=== PATIENT | male | born 1945 | race Caucasian/White ===

== ENCOUNTER 2018-07-18 17:42 | Emergency (ER) | payer BC, OTHER ==
[2018-07-18] MEDS ORDERED: VANCOMYCIN 1 GM (PMX) 250 ML IVPB (23:00)
[2018-07-18] MEDS ORDERED: CEFTRIAXONE 2 GM/50 ML (PMX) 50 ML IVPB (23:00)
[2018-07-18] MEDS ORDERED: ACYCLOVIR 500 MG in DEXTROSE 5% 100 ML IVPB (23:00)
== END 2018-07-18 23:15 | disposition left against medical advice (07) ==
LOC: E/R 23:15
DX: L03.211 Cellulitis of face (principal); B02.9 Zoster without complications
CPT/HCPCS: 99282

== ENCOUNTER 2018-07-21 14:50 | Inpatient (IN) | payer BC ==
[2018-07-21 16:52] LABS: ADD MAN DIFF? NO
[2018-07-21] MEDS: SOD CHLORIDE 0.9% 1,000 ML IV (16:54)
[2018-07-21 16:58] LABS: BASOPHILS % 0.4 % (0.0-2.0); HEMATOCRIT 40.4 % (42.0-52.0); HEMOGLOBIN 13.7 g/dl (14.0-18.0); LYMPHOCYTES # 0.8 10^3/ul (0.8-2.9); MEAN CORPUSCULAR HEMOGLOBIN 30.5 pg (29.0-33.0); MEAN CORPUSCULAR HGB CONC 33.9 g/dl (32.0-37.0); MEAN PLATELET VOLUME 10.5 fl (7.4-10.4); MONOCYTE # 0.5 10^3/ul (0.3-0.9); MONOCYTES % 7.4 % (0.0-11.0); NEUTROPHIL # 5.6 10^3/ul (1.6-7.5); NEUTROPHILS % 79.9 % (39.0-77.0); PLATELET COUNT 246 10^3/UL (140-415); RED BLOOD COUNT 4.49 10^6/ul (4.70-6.10); RED CELL DISTRIBUTION WIDTH 12.9 % (11.5-14.5)
[2018-07-21 17:18] LABS: ANION GAP 12 (5-13); BLOOD UREA NITROGEN 23 mg/dl (7-20); CALCIUM 9.8 mg/dl (8.4-10.2); CARBON DIOXIDE 28 mmol/L (21-31); CHLORIDE 100 mmol/L (97-110); CREATININE 1.41 mg/dl (0.61-1.24); Estimated GFR 50 mL/min (>60); GLUCOSE 106 mg/dl (70-220); POTASSIUM 4.6 mmol/L (3.5-5.1); SODIUM 140 mmol/L (135-144)
[2018-07-21 17:28] LABS: INR 1.04; PROTIME 13.7 Sec (11.9-14.9); PT RATIO 1.1
[2018-07-21 17:29] LABS: PARTIAL THROMBOPLASTIN TIME 27.9 Sec (23.0-35.0)
[2018-07-21] MEDS: ACYCLOVIR 500 MG in DEXTROSE 5% 100 ML IVPB (19:21)
[2018-07-21] MEDS: LIDOCAINE 1% (MDV) 20 ML INJ SC (19:27)
[2018-07-21] MEDS ORDERED: ONDANSETRON 4 MG INJ IV (20:00)
[2018-07-21] MEDS ORDERED: ACETAMINOPHEN 325 MG TAB PO (20:00)
[2018-07-21 20:24] LABS: CSF RBC 0 /uL (0-0)
[2018-07-21 20:26] LABS: CSF RBC 0 /uL (0-0)
[2018-07-21 20:41] LABS: GLUCOSE,CSF 68 mg/dl (50-80)
[2018-07-21 21:23] LABS: CSF COLOR COLORLESS; CSF WBC 17 /cmm (0-10)
[2018-07-21 21:24] LABS: CSF CLARITY CLEAR; CSF VOLUME 5.5 ml; CSF WBC 30 /cmm (0-10); CSF#TUBE COUNT TUBE#1; CSF#TUBES REC'D 4
[2018-07-21 21:24] LABS: CSF COLOR COLORLESS
[2018-07-21 21:25] LABS: CSF VOLUME 5.5 ml; CSF#TUBE COUNT TUBE#4; CSF#TUBES REC'D 4; TOTAL PROTEIN,CSF 53 mg/dl (12-60)
[2018-07-21] MEDS: DEXAMETHASONE 10 MG/ML 1 ML INJ IV (22:42)
[2018-07-21] MEDS: CEFTRIAXONE 2 GM/50 ML (PMX) 50 ML IVPB (22:44)
[2018-07-21] MEDS: VANCOMYCIN 1 GM (PMX) 250 ML IVPB (23:20)
[2018-07-22] MEDS ORDERED: ZOLPIDEM 5 MG TAB PO (02:30)
[2018-07-22] MEDS ORDERED: ACETAMINOPHEN 500 MG TAB PO (02:30)
[2018-07-22] MEDS: ACYCLOVIR 500 MG in SOD CHLORIDE 0.9% 100 ML IVPB ×3 (06:53→21:34)
[2018-07-22] MEDS: DEXTROSE 5%-0.45% NACL 500 ML IV (14:04)
[2018-07-22] MEDS: DEXTROSE 5%-0.45% NACL 1,000 ML IV ×2 (14:23→21:36)
[2018-07-22] MEDS: DEXAMETHASONE 0.1% 5 ML OPH LEFT EYE (21:33)
[2018-07-23] MEDS: DEXTROSE 5%-0.45% NACL 1,000 ML IV ×3 (01:47→16:11)
[2018-07-23] MEDS: ACYCLOVIR 500 MG in SOD CHLORIDE 0.9% 100 ML IVPB ×2 (06:18→21:19)
[2018-07-23 06:40] LABS: ADD MAN DIFF? NO
[2018-07-23 06:47] LABS: BASOPHILS % 0.1 % (0.0-2.0); EOSINOPHILS % 0.2 % (0.0-7.0); HEMATOCRIT 40.5 % (42.0-52.0); HEMOGLOBIN 13.3 g/dl (14.0-18.0); LYMPHOCYTES # 0.9 10^3/ul (0.8-2.9); LYMPHOCYTES % 5.1 % (15.0-51.0); MEAN CORPUSCULAR HEMOGLOBIN 30.1 pg (29.0-33.0); MEAN CORPUSCULAR HGB CONC 32.8 g/dl (32.0-37.0); MEAN CORPUSCULAR VOLUME 91.6 fl (82.0-101.0); MEAN PLATELET VOLUME 10.8 fl (7.4-10.4); MONOCYTE # 1.1 10^3/ul (0.3-0.9); NEUTROPHILS % 88.1 % (39.0-77.0); PLATELET COUNT 242 10^3/UL (140-415); RED BLOOD COUNT 4.42 10^6/ul (4.70-6.10); RED CELL DISTRIBUTION WIDTH 12.5 % (11.5-14.5)
[2018-07-23 06:47] LABS: WHITE BLOOD COUNT 18.2 10^3/ul (4.8-10.8)
[2018-07-23 07:23] LABS: ANION GAP 9 (5-13); BLOOD UREA NITROGEN 25 mg/dl (7-20); CALCIUM 8.7 mg/dl (8.4-10.2); CARBON DIOXIDE 26 mmol/L (21-31); CHLORIDE 97 mmol/L (97-110); CREATININE 1.01 mg/dl (0.61-1.24); Estimated GFR > 60 mL/min (>60); GLUCOSE 113 mg/dl (70-220); POTASSIUM 3.9 mmol/L (3.5-5.1); SODIUM 132 mmol/L (135-144)
[2018-07-23 07:40] LABS: T4 (THYROXINE) 7.4 ug/dl (5.5-11.0)
[2018-07-23] MEDS: DEXAMETHASONE 0.1% 5 ML OPH LEFT EYE ×3 (08:23→21:26)
[2018-07-23 13:59] LABS: ADD UMIC NO; UR ASCORBIC ACID NEGATIVE (NEGATIVE); UR BILIRUBIN (Dip) NEGATIVE (NEGATIVE); UR BLOOD (Dip) NEGATIVE (NEGATIVE); UR CLARITY CLEAR (CLEAR); UR COLOR STRAW (YELLOW); UR GLUCOSE (Dip) NEGATIVE (NEGATIVE); UR KETONES (Dip) NEGATIVE (NEGATIVE); UR LEUKOCYTE ESTERASE (Dip) NEGATIVE Leu/ul (NEGATIVE); UR NITRITE (Dip) NEGATIVE (NEGATIVE); UR SPECIFIC GRAVITY (Dip) 1.009 (1.003-1.030); UR TOTAL PROTEIN (Dip) NEGATIVE (NEGATIVE); UR UROBILINOGEN (Dip) NEGATIVE (NEGATIVE)
[2018-07-24] MEDS: DEXTROSE 5%-0.45% NACL 1,000 ML IV ×3 (04:00→13:09)
[2018-07-24] MEDS: DEXAMETHASONE 0.1% 5 ML OPH LEFT EYE ×3 (05:43→22:12)
[2018-07-24 06:57] LABS: ADD MAN DIFF? NO
[2018-07-24 07:07] LABS: BASOPHILS % 0.3 % (0.0-2.0); EOSINOPHILS # 0.1 10^3/ul (0.0-0.5); EOSINOPHILS % 1.1 % (0.0-7.0); HEMATOCRIT 34.1 % (42.0-52.0); HEMOGLOBIN 11.3 g/dl (14.0-18.0); LYMPHOCYTES % 14.1 % (15.0-51.0); MEAN CORPUSCULAR HEMOGLOBIN 30.3 pg (29.0-33.0); MEAN CORPUSCULAR HGB CONC 33.1 g/dl (32.0-37.0); MEAN CORPUSCULAR VOLUME 91.4 fl (82.0-101.0); MEAN PLATELET VOLUME 10.5 fl (7.4-10.4); MONOCYTE # 0.6 10^3/ul (0.3-0.9); MONOCYTES % 8.8 % (0.0-11.0); NEUTROPHIL # 5.3 10^3/ul (1.6-7.5); NEUTROPHILS % 75.4 % (39.0-77.0); PLATELET COUNT 191 10^3/UL (140-415); RED BLOOD COUNT 3.73 10^6/ul (4.70-6.10); RED CELL DISTRIBUTION WIDTH 12.4 % (11.5-14.5)
[2018-07-24 07:34] LABS: ALANINE AMINOTRANSFERASE 33 IU/L (13-69); ALBUMIN 2.9 g/dl (3.3-4.9); ALKALINE PHOSPHATASE 48 IU/L (42-121); ANION GAP 8 (5-13); ASPARTATE AMINO TRANSFERASE 29 IU/L (15-46); BILIRUBIN,INDIRECT 0.5 mg/dl (0-1.1); BILIRUBIN,TOTAL 0.5 mg/dl (0.2-1.3); BLOOD UREA NITROGEN 16 mg/dl (7-20); CALCIUM 8.2 mg/dl (8.4-10.2); CARBON DIOXIDE 28 mmol/L (21-31); CHLORIDE 100 mmol/L (97-110); CREATININE 0.83 mg/dl (0.61-1.24); Estimated GFR > 60 mL/min (>60); GLUCOSE 121 mg/dl (70-220); POTASSIUM 3.5 mmol/L (3.5-5.1); SODIUM 136 mmol/L (135-144); TOTAL PROTEIN 5.3 g/dl (6.1-8.1)
[2018-07-24 08:17] LABS: HIV 1&2 ANTIBODY NEGATIVE (NEGATIVE)
[2018-07-24] MEDS: VALACYCLOVIR 500 MG TAB PO ×3 (10:07→20:35)
[2018-07-24] MEDS: DEXTROSE IV (15:33)
[2018-07-24] MEDS: NACL IV (15:33)
[2018-07-24] MEDS: POTASSIUM CHLORIDE IV (15:33)
[2018-07-24] MEDS: VANCOMYCIN HCL 250 MG/5ML POSYG PO (17:13)
[2018-07-24 21:32] LABS: HERPES SIMPLEX 1 DNA NOT DETECTED; HERPES SIMPLEX 2 DNA NOT DETECTED; HERPES SIMPLEX PCR SOURCE CEREBROSPINAL FLUID
[2018-07-25] MEDS: VANCOMYCIN HCL 250 MG/5ML POSYG PO ×5 (00:07→23:51)
[2018-07-25] MEDS: ONDANSETRON 4 MG INJ IV (00:07)
[2018-07-25] MEDS: DEXTROSE IV ×2 (05:38→17:40)
[2018-07-25] MEDS: POTASSIUM CHLORIDE IV ×2 (05:38→17:40)
[2018-07-25] MEDS: NACL IV ×2 (05:38→17:40)
[2018-07-25] MEDS: DEXAMETHASONE 0.1% 5 ML OPH LEFT EYE ×3 (06:44→21:07)
[2018-07-25] MEDS: VALACYCLOVIR 500 MG TAB PO ×3 (08:34→21:07)
[2018-07-25 08:56] LABS: ADD MAN DIFF? NO
[2018-07-25 08:59] LABS: WHITE BLOOD COUNT 23.2 10^3/ul (4.8-10.8)
[2018-07-25 08:59] LABS: ABNORMAL IP MESSAGE 1; BASOPHILS % 0.2 % (0.0-2.0); EOSINOPHILS # 0.1 10^3/ul (0.0-0.5); EOSINOPHILS % 0.3 % (0.0-7.0); HEMOGLOBIN 12.2 g/dl (14.0-18.0); LYMPHOCYTES % 4.2 % (15.0-51.0); MEAN CORPUSCULAR HEMOGLOBIN 30.4 pg (29.0-33.0); MEAN CORPUSCULAR HGB CONC 33.9 g/dl (32.0-37.0); MEAN CORPUSCULAR VOLUME 89.8 fl (82.0-101.0); MEAN PLATELET VOLUME 10.5 fl (7.4-10.4); MONOCYTE # 1.5 10^3/ul (0.3-0.9); MONOCYTES % 6.3 % (0.0-11.0); NEUTROPHIL # 20.5 10^3/ul (1.6-7.5); PLATELET COUNT 229 10^3/UL (140-415); POSITIVE DIFF @See below; RED BLOOD COUNT 4.01 10^6/ul (4.70-6.10); RED CELL DISTRIBUTION WIDTH 12.4 % (11.5-14.5)
[2018-07-25 09:27] LABS: ANION GAP 8 (5-13); BLOOD UREA NITROGEN 11 mg/dl (7-20); CALCIUM 8.7 mg/dl (8.4-10.2); CARBON DIOXIDE 27 mmol/L (21-31); CHLORIDE 100 mmol/L (97-110); CREATININE 0.79 mg/dl (0.61-1.24); Estimated GFR > 60 mL/min (>60); GLUCOSE 119 mg/dl (70-220); POTASSIUM 3.7 mmol/L (3.5-5.1); SODIUM 135 mmol/L (135-144)
[2018-07-26] MEDS: VANCOMYCIN HCL 250 MG/5ML POSYG PO ×2 (05:53→13:13)
[2018-07-26] MEDS: DEXAMETHASONE 0.1% 5 ML OPH LEFT EYE ×2 (05:54→14:07)
[2018-07-26] MEDS: POTASSIUM CHLORIDE IV (06:31)
[2018-07-26] MEDS: DEXTROSE IV (06:31)
[2018-07-26] MEDS: NACL IV (06:31)
[2018-07-26 06:54] LABS: ADD MAN DIFF? NO
[2018-07-26 07:05] LABS: WHITE BLOOD COUNT 11.1 10^3/ul (4.8-10.8)
[2018-07-26 07:05] LABS: BASOPHILS % 0.3 % (0.0-2.0); EOSINOPHILS # 0.1 10^3/ul (0.0-0.5); EOSINOPHILS % 0.9 % (0.0-7.0); HEMATOCRIT 37.4 % (42.0-52.0); HEMOGLOBIN 12.4 g/dl (14.0-18.0); LYMPHOCYTES # 0.8 10^3/ul (0.8-2.9); LYMPHOCYTES % 7.5 % (15.0-51.0); MEAN CORPUSCULAR HGB CONC 33.2 g/dl (32.0-37.0); MEAN CORPUSCULAR VOLUME 90.6 fl (82.0-101.0); MEAN PLATELET VOLUME 10.3 fl (7.4-10.4); MONOCYTE # 0.7 10^3/ul (0.3-0.9); MONOCYTES % 6.2 % (0.0-11.0); NEUTROPHIL # 9.4 10^3/ul (1.6-7.5); NEUTROPHILS % 84.5 % (39.0-77.0); PLATELET COUNT 272 10^3/UL (140-415); RED BLOOD COUNT 4.13 10^6/ul (4.70-6.10); RED CELL DISTRIBUTION WIDTH 12.6 % (11.5-14.5)
[2018-07-26 08:06] LABS: ANION GAP 10 (5-13); BLOOD UREA NITROGEN 13 mg/dl (7-20); CALCIUM 8.9 mg/dl (8.4-10.2); CARBON DIOXIDE 27 mmol/L (21-31); CHLORIDE 99 mmol/L (97-110); CREATININE 0.77 mg/dl (0.61-1.24); Estimated GFR > 60 mL/min (>60); GLUCOSE 124 mg/dl (70-220); SODIUM 136 mmol/L (135-144)
[2018-07-26 08:13] LABS: IMMUNOGLOBULIN G 948 mg/dl (700-1600)
[2018-07-26] MEDS: VALACYCLOVIR 500 MG TAB PO ×2 (08:39→13:13)
== END 2018-07-26 16:10 | disposition home or self-care (01) | DRG 74 ==
LOC: 5EC 07-22 02:45 → E/R 14:50 → 5EC 19:48
PROC: 009U3ZX Drainage of Spinal Canal, Percutaneous Approach, Diagnostic (ICD-10-PCS; principal; 2018-07-21)
DX: B02.0 Zoster encephalitis (principal); N17.9 Acute kidney failure, unspecified; A04.72 Enterocolitis due to Clostridium difficile, not specified as recurrent; L03.211 Cellulitis of face; R44.1 Visual hallucinations; E86.0 Dehydration; H10.9 Unspecified conjunctivitis; H10.32 Unspecified acute conjunctivitis, left eye; S05.12XA Contusion of eyeball and orbital tissues, left eye, initial encounter; W22.8XXA Striking against or struck by other objects, initial encounter; Y93.89 Activity, other specified; Y92.89 Other specified places as the place of occurrence of the external cause; Y99.8 Other external cause status
CPT/HCPCS: 36415; 70450; 80048; 80053; 81003; 82784; 82945; 84157; 84436; 84443; 85025; 85610; 85730; 86703; 87070; 87075; 87252; 87529; 89051; 96365; 99285-25